=== PATIENT | female | born 1995 ===

== ENCOUNTER 2025-04-11 15:29 | Outpatient (REF) | payer BC, SELFPAY ==
--- NOTE | 2025-04-11 15:25 | PAPFT_PTH ---
PATIENT: Lakshmi Sales LOC: [facility] U#:[id number] AGE/SX: 30/F ROOM: RE04/11/[address]: Amy Livingston DO : 1995 BED: DIS: 04/11/2025 SPEC #: [id number] RECD: 04/11/25 18:19 STATUS: CHRISSY REQ #: [id number] GEOVANNA: 04/11/25 15:[address]: Amy Livingston DEPT: [facility] Cytology RECD BY: Isabelle Cassidy ENTERED: 04/11/25 18:19 SP TYPE: PAPFT OTHR DR: Unknown,Unknown Tissues: 1 - CX/ENDOCX FOR PAP SMEARS Procedures: PAP THIN PREP/[facility] Screening HPV DNA PROBE Comments: [id number] (HPV 16 & 18/45)
== END 2025-04-11 15:30 | disposition home or self-care (01) ==
LOC: LBN 15:29
PROVIDERS: Visit Provider Obstetrics & Gynecology
DX: Z12.4 Encounter for screening for malignant neoplasm of cervix (principal)
CPT/HCPCS: 88142; 87624